=== PATIENT | female | born 1960 | race Caucasian/White ===

== ENCOUNTER 2019-04-22 05:47 | Day surgery (SDC) | payer OTHER, SELFPAY ==
[2019-02-17 14:03] VITALS: BMI 28.3
--- NOTE | 2019-04-21 18:47 | HP.PCM_ITS ---
History and Physical Date of Admission: 04/22/19 HISTORY OF PRESENT ILLNESS 58 year old woman presents with a soft tissue mass right proximal outer arm that has increased in size over the last several months. She states 3 years ago she had blunt trauma to this area. She denies numbness right arm. She denies fever. She denies recent infection. She had an ultrasound in 11/05 which was consistent with lipoma. She presents at this time for further evaluation and treatment. PAST MEDICAL HISTORY Arthritis Osteopenia Hypertension PAST SURGICAL HISTORY hysterectomy ALLERGIES No Known Allergies MEDICATIONS metoprolol tartrate FAMILY HISTORY Brother - Alcoholism Father - Alcoholism, Arthritis, Hypertension, CVA (cerebral vascular accident) Mother - Arthritis, Hypertension, Osteoporosis Son - Skin cancer SOCIAL HISTORY Smoking Status: Former smoker alcohol intake: current substance use type: does not use REVIEW OF SYSTEMS General - Denies fever, fatigue, and weight loss. Eyes - Denies cataracts and glaucoma. ENT - Denies nasal congestion and sore throat. Endocrine - Denies excessive thirst and urination. Skin - Has personal history of skin cancer. Has family history of skin cancer. Has enlarging soft tissue mass lipoma right proximal outer arm . Musculoskeletal - Denies joint pain, joint stiffness, weakness of muscles and joints, back pain, and arthritis. Neuro - Denies headaches. Cardiovascular - Denies chest pain, fatigue, and shortness of breath with exertion. Psych - Denies anxiety and depression. Respiratory - Denies chronic cough and shortness of breath. Patient is a former smoker. Gastrointestinal - Denies nausea, vomiting, diarrhea, and constipation. Hematologic - Denies abnormal bruising and bleeding. Genitourinary - Denies hematuria and urinary frequency. PHYSICAL EXAMINATION General - Alert and Oriented HEENT - PERRL. EOMI. Throat is clear. No suspicious lesions noted. Neck - Supple and nontender. No cervical adenopathy. No suspicious lesions noted. Lungs - Clear to auscultation. Heart - Regular rate and rhythm. Abdomen - Soft and nondistended. Extremities - FROM. No axillary adenopathy. Radial pulses are palpable. In the right proximal outer arm is a soft tissue mass lipoma. Measures 10 cm. Mobile. No evidence of infection. No sensory deficits. She has a chronic hemangioma on her left upper extremity that is stable. She states she had vascular laser treatments as a child. Neuro - CN II-XII grossly intact. Psych - Normal mood and affect. ASSESSMENT 1. 10 cm soft tissue mass lipoma right proximal outer arm. 2. Personal history of skin cancer. 3. Family history of skin cancer. 4. Former smoker. PLAN Recommend excision of this soft tissue mass lipoma right proximal outer arm and send it to Pathology for analysis to rule out carcinoma. Anticipate a large cavity after excision and will need a drain postoperatively. Will also need a compression emanuel wrap to minimize seroma formation. Surgery can be done under local anesthesia and IV sedation on an outpatient basis. Patient was informed of the risks and complications of the procedure including alternatives to surgery. These were discussed with the patient personally. Patient voices understanding and wishes to proceed. Some of the risks and complications were included in a form from the [employer].
[2019-04-22] VITALS (7 sets, daily range): BP systolic 109–132; BP diastolic 79–92; PULSE 53–65; RESP 15–16; TEMP 35.8–36.2; O2SAT 98–99; BMI 28.1
[2019-04-22] MEDS: Lactated Ringers 1,000 ML 100 ML IV ×2 (06:24→06:30)
[2019-04-22] MEDS: Mupirocin Ointment 22gm Tube 1 APPLIC (07:07)
--- NOTE | 2019-04-22 07:30 | LIP_PTH ---
PATIENT: CB BALDERAS LOC: [facility] [place] U#:[id number] AGE/SX: 58/F ROOM: RE04/22/[address]: Dr. Alexis Mendoza MD : 1960 BED: DIS: 04/22/2019 SPEC #: [id number] RECD: 04/22/19 12:58 STATUS: EMI REAndrez #: [id number] GRACIELA: 04/22/19 07:[address]: Alexis Mendoza DEPT: SURGICAL PATHOLOGY RECD BY: Tavon Hodge ENTERED: 04/22/19 13:31 SP TYPE: LIPOMA OTHR DR: Dr. Mae Flores, DO Tissues: Soft tissues, NOS Procedures: Surgery Specimen Level III HEADER OPERATION: Excision soft tissue mass proximal outer arm PRE-OP DIAGNOSIS: 10 cm soft tissue mass lipoma right proximal outer arm TISSUE SUBMITTED: Soft tissue mass right proximal outer arm MICROSCOPIC DIAGNOSIS Soft tissue mass, right proximal outer arm, excisional biopsy: Mature adipose tissue, consistent with lipoma. ROGERS:bakari 04/25/19 MICROSCOPIC DESCRIPTION Slides are reviewed. GROSS DESCRIPTION Received in fixative is one container labeled with the patient's name and designated soft tissue mass right proximal outer arm. The specimen consists of two lobulated fragments of yellow fatty tissue measuring in aggregate 6 x 4 x 1.5 cm. Sections reveal homogenous yellow cut surfaces without areas of cyst formation, necrosis or myxoid change. Continuing Education Specialist sections are submitted in three cassettes. / AM:bakari 04/22/19 TC:1 CPT: 55539
[2019-04-22] MEDS: Cefazolin 2 GM in 0.9% Normal Saline 100 ML IV (07:35)
--- NOTE | 2019-04-22 08:37 | OP.PCM_ITS ---
Report of Operation Date of Procedure: 04/22/19 Pre-Operative Diagnosis: 1. 10 cm soft tissue mass lipoma right proximal outer arm. 2. Personal history of skin cancer. 3. Family history of skin cancer. 4. Former smoker. Post-Operative Diagnosis: 1. 10 cm intramuscular soft tissue mass lipoma right proximal outer arm. 2. Personal history of skin cancer. 3. Family history of skin cancer. 4. Former smoker. Surgery/Procedure Performed:: Excision 10 cm intramuscular soft tissue mass lipoma right proximal outer arm with 10 cm complex closure repair. Description of Surgical Findings:: 58 year old woman presents with a soft tissue mass right proximal outer arm that has increased in size over the last several months. She states 3 years ago she had blunt trauma to this area. She denies numbness right arm. She denies fever. She denies recent infection. She had an ultrasound in 11/05 which was consistent with lipoma. Patient was informed of the risks and complications of the procedure including alternatives to surgery. These were discussed with the patient personally. Patient voices understanding and wishes to proceed. Some of the risks and complications were included in a form from the [employer] [employer]. I used Alexx absorbable hemostat. Reference Number - [id number]. Lot Number - [id number]. Expiration - October 15, 2023. film laboratory technician: None Type of Anesthesia:: Local MAC - xylocaine with epinephrine and IV sedation. Specimen's removed: Intramuscular soft tissue mass lipoma right proximal outer arm to Pathology. Drains: Palomo. Estimated Blood Loss (mL): 25 ml. Description of Procedure: Patient was taken to OR in supine position and was given IV sedation. The right proximal outer arm was prepped and draped in the usual fashion. SCD's were placed for DVT prophylaxis. Perioperative antibiotics were given intravenously. The soft tissue mass right proximal outer arm was infiltrated with xylocaine and epinephrine. After waiting 5 minutes for the anesthetic to take effect, a longitudinal incision was made into the subcutaneous tissue. Dissection was carried down to the underlying muscle. The soft tissue mass was seen within the muscle. Sharp dissection was then done into the muscle to free up this soft tissue mass. The mass extended to the bone but was not adherent to the bone. Bleeding muscle edges were controlled with electrocautery. The mass was well encapsulated as it was dissected free and removed. It is clinically consistent with a lipoma. It was sent to Pathology for analysis to rule out carcinoma. The wound was irrigated with saline. I then sprayed Alexx absorbable hemostat into the wound to minimize seroma formation. A size 15 Palomo drain was placed through a separate stab incision inferiorly and secured to the skin with 3-0 Nylon suture. The wound was then closed in a multiple layered complex fashion with 3-0 Monocryl figure of eight interrupted sutures for repair of some of the underlying muscle involved in the dissection of this intramuscular soft tissue mass. The deep dermis and subcutaneous tissue was approximated with 3-0 Monocryl interrupted sutures. The skin was approximated with 3-0 Monocryl simple running suture. The length of the complex closure was 10 cm. Steri- strips were applied followed by a gauze compression dressing followed by an GIGI wrap for compression. Patient tolerated the procedure well and was sent to PACU in satisfactory condition. Patient will be sent home on antibiotics and pain medication. She will keep her right arm elevated during the initial postoperative period. Patient will followup in a week for a wound check and for discussion of the pathology report. Grafts/Implants Used: None. - Complications None. - Admit VTE Documentation VTE Present on Admission: No VTE Mechan Device Prophylaxis: SCD's VTE Pharm Prophylaxis ordered?: No Code Visit Surgery Charges CPT - 92221 ICD-10 - D17.21, Z85.828, Z80.8, Z87.891 99692 D17.21, Z85.828, Z80.8, Z87.891 11348 D17.21, Z85.828, Z80.8, Z87.891
--- NOTE | 2019-04-22 08:46 | DCINST_ITS ---
You will use the following diet at home:: No restrictions Discharge Activity: May not drive while taking narcotic pain medications., May Not Shower - until the drain is removed in the office, - - elevate right arm. no heavy lifting right arm. May shower in (days): 10 - after the drain is removed May resume sexual activity in: No Restrictions Weight Bearing Status: Weight bearing as tolerated Lifting Restrictions: 20 lbs. Keep extremity elevated above heart level: Right Arm Call your doctor if your incision/area has: Continuous Slow Oozing, Sudden Increased Bleeding, Increased Pain/ Swelling, Increased Redness, Foul Smelling Discharge, Swelling at the incision site Call your doctor if you observe: Fever of 101 or Higher, Coldness, Increased Pain, Shortness of breath, Chest pain, Calf discomfort, Uncontrolled pain Change Dressing in (Days):: 7 - will change dressing in office. Cleanse incision/area with: - - may get inciision wet in the shower after the drain is removed. Drain: Suction - sammy drain to bulb suction. empty and record output daily. Allergies/Adverse Reactions: Allergies No Known Allergies Allergy (Unverified 04/22/19 06:07) Medications to take at Discharge metoprolol tartrate 50 mg tablet 50 mg PO BID 02/17/19 Cefadroxil [Duricef] 500 mg PO BID #28 cap 04/22/19 Diazepam [Valium] 5 mg PO TID PRN PRN #20 tab 04/22/19 Lactobacillus Acidophilus/Fos [Acidophilus Probiotic Tablet] 1 ea PO BID #30 tab 04/22/19 Oxycodone HCl/Acetaminophen [Percocet 5/325] 1 tab PO 4X/DAY PRN PRN 7 Days #30 tab 04/22/19 The following prescriptions were given: Lactobacillus Acidophilus/Fos [Acidophilus Probiotic Tablet] 1 ea PO BID #30 tab Prescription Printed Cefadroxil [Duricef] 500 mg PO BID #28 cap Prescription Printed Oxycodone HCl/Acetaminophen [Percocet 5/325] 1 tab PO 4X/DAY PRN PRN 7 Days #30 tab PRN Reason: Pain Prescription Printed Diazepam [Valium] 5 mg PO TID PRN PRN #20 tab PRN Reason: Spasms Prescription Printed Primary Care Physician: Mae Flores DO [Primary Care Provider] - Test Results: Test results from this visit will be discussed in further detail at your follow- up appointment, if applicable. Please Follow Up With: Alexis Mendoza MD When: one week. call [phone] for appt. Proposed Discharge Date: 04/22/19
== END 2019-04-22 10:13 | disposition home or self-care (01) ==
LOC: SDC 05:50 → AC 05:50
PROVIDERS: Referring Provider Surgery; Visit Provider Surgery
PROC: (CPT 11406; principal; 2019-04-22 07:15)
DX: D17.21 Benign lipomatous neoplasm of skin and subcutaneous tissue of right arm (principal); Z85.828 Personal history of other malignant neoplasm of skin; Z87.891 Personal history of nicotine dependence; Z80.8 Family history of malignant neoplasm of other organs or systems; M19.90 Unspecified osteoarthritis, unspecified site; M85.80 Other specified disorders of bone density and structure, unspecified site; I10 Essential (primary) hypertension; D18.01 Hemangioma of skin and subcutaneous tissue; Z78.0 Asymptomatic menopausal state; Z79.899 Other long term (current) drug therapy
CPT/HCPCS: 11406; 13121; 13122; 88304; J7120